=== PATIENT | female | born 1990 | race Caucasian/White ===

== ENCOUNTER → 2016-08-20 | Outpatient (CLI) | payer OTHER ==
[~2016-08-20] MED LIST: ACETAMINOPHEN500 MG PO; ADVIL200 MG PO; ATIVAN0.5 MG PO; BENADRYL ALLERG25 MG PO; CELEXA40 MG PO; Chromagen, Feogen, M PO; Diabeta,Micronase PO; EFFEXOR75 MG PO; ENDOCET 5-3251 EACH PO; EPIPEN ADU0.3 MG/0.3 IM; FLEXERIL10 MG PO; IBUPROFEN800 MG PO; JUNEL FE 1.5-31 EACH; MEDROL DOSEPAK4 MG PO; MOTRIN600 MG PO; MOTRIN800 MG PO; Motrin PO; NAPROSYN500 MG PO; PERCOCET 5/31 TABLET PO; PREDNISONE10 MG PO; PRENATAL VITAM1 EAC1 PO; Protonix PO; TYLENOL EXTRA500 MG PO; TYLENOL REGULA325 MG PO; ULTRAM50 MG PO; VICODIN 5-3001 EACH PO; VITAMIN B125000 MCG PO; XANAX0.5 MG PO; [UNRECOGNIZED DRUG - OTHER] PO; celeXA PO
== END | disposition home or self-care (01) ==
LOC: EKG 15:25
DX: R07.9 Chest pain, unspecified (principal); R00.0 Tachycardia, unspecified
CPT/HCPCS: 93306